=== PATIENT | female | born 1960 | race African-American/Black ===

== ENCOUNTER 2018-08-28 02:18 | Inpatient (IN) | payer MEDICARE, MEDICAID ==
[~2018-08-28] VITALS: Ht 167.6 cm; Wt 107.5 kg
[2018-08-28] VITALS (33 sets, daily range): BP systolic 53–161; BP diastolic 23–101
[~2018-08-28 02:18] MED LIST: AMLODIPINE PO; BENAZEPRIL PO; IRON PILLS PO; METF500T3; SIMV5TAB2
[2018-08-28] MEDS ORDERED: METHYLPREDNISOLONE SOD SUCC 125 MG/2 ML VIAL IV ONE (02:30)
[2018-08-28] MEDS ORDERED: SODIUM CHLORIDE 0.9% 1,000 ML IV ONE (02:30)
[2018-08-28] MEDS ORDERED: FAMOTIDINE 20MG/2ML VIAL IV ONE (02:30)
[2018-08-28] MEDS ORDERED: EPINEPHRINE 1:1000 1 MG/ML AMP INJ ONE (02:30)
[2018-08-28] MEDS ORDERED: DIPHENHYDRAMINE 50MG/ML VIAL IV ONE (02:30)
[2018-08-28] MEDS ORDERED: ONDANSETRON HCL 4MG/2ML INJ IV NR (03:00)
[2018-08-28] MEDS ORDERED: GLUCAGON,HUMAN RECOMBINANT 1MG/VIAL IV ONE (03:45)
[2018-08-28 04:03] LABS: HEMATOCRIT 32.2 % (36.0-48.0); HEMOGLOBIN 10.7 g/dL (12.0-16.0); MEAN CORPUSCULAR HEMOGLOBIN 28.4 pg (28.0-32.0); MEAN CORPUSCULAR VOLUME 85.5 fL (81.0-99.0); PLATELET 149 x1000/uL (130-400); RED BLOOD CELL COUNT 3.77 mill/uL (4.2-5.4); RED CELL DISTRIBUTION WIDTH 12.8 % (11.6-14.6)
[2018-08-28 04:11] LABS: CHLORIDE 112 mEq/L (98-107)
[2018-08-28] MEDS ORDERED: ENOXAPARIN 40MG/0.4ML SYR SUBCUT SCH (08:00)
[2018-08-28] MEDS ORDERED: ACETAMINOPHEN 325MG TABLET PO PRN (08:00)
[2018-08-28] MEDS ORDERED: DOCUSATE SODIUM 100MG CAPSULE PO PRN (08:00)
[2018-08-28] MEDS ORDERED: GUAIFENESIN 200MG/10ML SUGAR FREE UDC PO PRN (08:00)
[2018-08-28] MEDS ORDERED: TRAMADOL 50MG TABLET PO PRN (08:00)
[2018-08-28] MEDS ORDERED: CLONIDINE 0.1MG TABLET PO PRN (08:00)
[2018-08-28] MEDS ORDERED: IPRATROPIUM/ALBUTEROL 0.5-3(2.5)MG/3ML NEB INH PRN (08:00)
[2018-08-28] MEDS ORDERED: DIPHENHYDRAMINE 50MG/ML VIAL IV PRN (08:00)
[2018-08-28] MEDS ORDERED: ONDANSETRON HCL 4MG/2ML INJ IV PRN (08:00)
[2018-08-28] MEDS ORDERED: MAGNESIUM/ALUMINUM HYDROXIDE/SIMETHICONE 30ML UDC PO PRN (08:00)
[2018-08-28] MEDS ORDERED: NITROGLYCERIN 0.4MG TABLET SL SL PRN (08:00)
[2018-08-28] MEDS ORDERED: DEXTROSE 50% WATER 50ML SYRINGE IV PRN (08:15)
[2018-08-28 10:10] LABS: *AMPHETAMINES SCREEN URINE NEGATIVE (NEGATIVE); *BARBITURATES SCREEN URINE NEGATIVE (NEGATIVE); *BENZODIAZEPINES SCREEN URINE NEGATIVE (NEGATIVE); *COCAINE SCREEN URINE NEGATIVE (NEGATIVE)
[2018-08-28 10:11] LABS: CANNABINOID URINE SCREEN NEGATIVE (NEGATIVE); METHADONE URINE SCREEN NEGATIVE (NEGATIVE); OPIATES URINE SCREEN NEGATIVE (NEGATIVE); PHENCYCLIDINE URINE SCREEN NEGATIVE (NEGATIVE)
[2018-08-28] MEDS: FAMOTIDINE 20MG TABLET PO SCH ×2 (10:26→21:34)
[2018-08-28] MEDS: GUAIFENESIN 600MG ER TABLET PO SCH ×2 (10:26→21:37)
[2018-08-28] MEDS: ENOXAPARIN 30MG/0.3ML SYR SUBCUT SCH ×2 (10:27→21:38)
[2018-08-28] MEDS: METOPROLOL TARTRATE 25MG TABLET PO SCH ×3 (10:27→21:46)
[2018-08-28] MEDS: DIPHENHYDRAMINE 50MG/ML VIAL IV SCH ×2 (11:40→21:38)
[2018-08-28] MEDS: BLOOD SUGAR DIAGNOSTIC STRIP TEST SCH ×3 (11:50→21:38)
[2018-08-28] MEDS: METHYLPREDNISOLONE SOD SUCC 125 MG/2 ML VIAL IV SCH ×2 (13:02→21:39)
[2018-08-28] MEDS: INSULIN LISPRO 100 UNITS/ML SUBCUT SCH ×3 (13:03→21:42)
[2018-08-28 16:43] LABS: CREATINE KINASE MB FRACTION 1.2 ng/mL (0.5-3.6)
[2018-08-28] MEDS ORDERED: ZOLPIDEM TARTRATE 5MG TABLET PO PRN (21:00)
[2018-08-29] VITALS (23 sets, daily range): BP systolic 116–183; BP diastolic 56–122
[2018-08-29] MEDS: METHYLPREDNISOLONE SOD SUCC 125 MG/2 ML VIAL IV SCH ×3 (05:25→21:14)
[2018-08-29] MEDS: DIPHENHYDRAMINE 50MG/ML VIAL IV SCH (05:25)
[2018-08-29] MEDS: BLOOD SUGAR DIAGNOSTIC STRIP TEST SCH ×5 (06:13→21:15)
[2018-08-29] MEDS: INSULIN LISPRO 100 UNITS/ML SUBCUT SCH ×4 (06:13→21:49)
[2018-08-29] MEDS: GUAIFENESIN 600MG ER TABLET PO SCH ×2 (08:27→21:14)
[2018-08-29] MEDS: METOPROLOL TARTRATE 25MG TABLET PO SCH (08:27)
[2018-08-29] MEDS: FAMOTIDINE 20MG TABLET PO SCH ×2 (08:27→21:14)
[2018-08-29] MEDS: ENOXAPARIN 30MG/0.3ML SYR SUBCUT SCH ×2 (08:28→21:14)
[2018-08-29] MEDS ORDERED: HALOPERIDOL LACTATE 5MG/ML VIAL IM PRN (12:30)
[2018-08-29] MEDS ORDERED: DIPHENHYDRAMINE 25MG CAPSULE PO PRN (18:45)
[2018-08-29] MEDS: AMLODIPINE 2.5MG TABLET PO SCH (21:15)
[2018-08-30] VITALS: BP 156/86
[2018-08-30 04:00] VITALS: BP 145/80
[2018-08-30] MEDS: BLOOD SUGAR DIAGNOSTIC STRIP TEST SCH ×2 (06:10→12:28)
[2018-08-30] MEDS: METHYLPREDNISOLONE SOD SUCC 125 MG/2 ML VIAL IV SCH ×2 (06:10→13:46)
[2018-08-30] MEDS: INSULIN LISPRO 100 UNITS/ML SUBCUT SCH ×2 (07:11→13:14)
[2018-08-30 08:00] VITALS: BP 145/88
[2018-08-30] MEDS: GUAIFENESIN 600MG ER TABLET PO SCH (09:27)
[2018-08-30] MEDS: FAMOTIDINE 20MG TABLET PO SCH (09:27)
[2018-08-30] MEDS: AMLODIPINE 2.5MG TABLET PO SCH (09:27)
[2018-08-30] MEDS: ENOXAPARIN 30MG/0.3ML SYR SUBCUT SCH (09:28)
[2018-08-30 12:00] VITALS: BP 146/78
[2018-08-30 12:48] VITALS: BP 146/78
[2018-08-31 10:06] LABS: C1 ESTERASE INHIBITOR 34 mg/dL (21-39)
[2018-09-01 13:06] LABS: C1 ESTERASE INHIBITOR FUNCTNL 100 (.)
== END 2018-08-30 15:05 | disposition home or self-care (01) | DRG 916 ==
LOC: ER 02:18 → MICUSO 03:42 → ENRESERV 07:11 → 5WST 08-29 14:00
PROVIDERS: ADMIT Internal Medicine; ATTEND Internal Medicine
PROC: 30233K1 Transfusion of Nonautologous Frozen Plasma into Peripheral Vein, Percutaneous Approach (ICD-10-PCS; principal; 2018-08-28)
DX: T78.3XXA Angioneurotic edema, initial encounter (principal); I10 Essential (primary) hypertension; E78.00 Pure hypercholesterolemia, unspecified; E11.9 Type 2 diabetes mellitus without complications; D63.8 Anemia in other chronic diseases classified elsewhere; Z79.899 Other long term (current) drug therapy; Z79.84 Long term (current) use of oral hypoglycemic drugs
CPT/HCPCS: 36415; 80061; 80305; 82550; 82553; 82962; 83036; 84484; 85027; 86161; 86850; 86900; 86927; 93970; 96374; 96375; 99285; J1200; J1610; J1650; J1815; J2405; J2930; J3490; J7030; J7042; P9017; Q0163

== ENCOUNTER 2019-04-13 12:23 | Emergency (ER) | payer MEDICARE, MEDICAID ==
[~2019-04-13] VITALS: Ht 172.7 cm; Wt 106.0 kg
[~2019-04-13 12:23] MED LIST changes: -BENAZEPRIL PO
[2019-04-13] MEDS ORDERED: KETOROLAC 60MG/2ML VIAL IM STA (15:44)
[2019-04-13 16:11] LABS: BASOPHILS % 0.6 % (0.0-2.0); EOSINOPHILS % 2.7 % (0.0-5.0); HEMATOCRIT. 34.8 % (36.0-48.0); HEMOGLOBIN. 11.5 g/dL (12.0-16.0); MEAN CORPUSCULAR HEMOGLOBIN 27.8 pg (28.0-32.0); MEAN CORPUSCULAR VOLUME 84.4 fL (81.0-99.0); MEAN PLATELET VOLUME 8.9 fl (7.4-10.4); MONOCYTES % 8.6 % (2.0-8.0); NEUTROPHILS % 56.1 % (40.0-76.0); PLATELET 177 x1000/uL (130-400); RED BLOOD CELL COUNT 4.12 mill/uL (4.2-5.4); RED CELL DISTRIBUTION WIDTH 14.2 % (11.6-14.6)
[2019-04-13 16:17] LABS: PROTHROMBIN TIME 10.5 sec (9.6-11.0)
[2019-04-13 18:00] VITALS: BP 146/82
[2019-04-13 21:32] LABS: CHLORIDE 113 mEq/L (98-107)
== END 2019-04-13 18:53 | disposition home or self-care (01) ==
LOC: ER 12:23
DX: S70.01XA Contusion of right hip, initial encounter (principal); S40.021A Contusion of right upper arm, initial encounter; E11.9 Type 2 diabetes mellitus without complications; I10 Essential (primary) hypertension; W18.39XA Other fall on same level, initial encounter; Y93.89 Activity, other specified; Y92.9 Unspecified place or not applicable; Z88.8 Allergy status to other drugs, medicaments and biological substances; Z86.73 Personal history of transient ischemic attack (TIA), and cerebral infarction without residual deficits
CPT/HCPCS: 36415; 70450; 73030; 73060; 73502; 80053; 85025; 85610; 96372; 99284; J1885

== ENCOUNTER 2019-12-07 06:56 | Inpatient (IN) | payer MEDICARE, MEDICAID ==
[~2019-12-07] VITALS: Ht 165.1 cm; Wt 99.8 kg
[2019-12-07 08:50] LABS: BASOPHILS % 0.3 % (0.0-2.0); EOSINOPHILS % 0.8 % (0.0-5.0); HEMOGLOBIN. 11.5 g/dL (12.0-16.0); MEAN CORPUSCULAR HEMOGLOBIN 28.2 pg (28.0-32.0); MEAN CORPUSCULAR VOLUME 83.5 fL (81.0-99.0); MEAN PLATELET VOLUME 9.9 fl (7.4-10.4); MONOCYTES % 8.2 % (2.0-8.0); NEUTROPHILS % 80.7 % (40.0-76.0); PLATELET 145 x1000/uL (130-400); RED BLOOD CELL COUNT 4.07 mill/uL (4.2-5.4); RED CELL DISTRIBUTION WIDTH 13.7 % (11.6-14.6)
[2019-12-07 08:51] LABS: CHLORIDE 107 mEq/L (98-107)
[2019-12-07] MEDS ORDERED: CLONIDINE 0.1MG TABLET PO PRN (11:30)
[2019-12-07] MEDS ORDERED: ENOXAPARIN 40MG/0.4ML SYR SUBCUT SCH (11:30)
[2019-12-07] MEDS ORDERED: ACETAMINOPHEN 325MG TABLET PO PRN (11:30)
[2019-12-07] MEDS ORDERED: IPRATROPIUM/ALBUTEROL 0.5-3(2.5)MG/3ML NEB NEB PRN (11:30)
[2019-12-07] MEDS ORDERED: ONDANSETRON HCL 4MG/2ML INJ IV PRN (11:30)
[2019-12-07] MEDS ORDERED: DEXTROSE 50% WATER 50ML SYRINGE IV PRN ×2 (11:30)
[2019-12-07] MEDS ORDERED: MAGNESIUM/ALUMINUM HYDROXIDE/SIMETHICONE 30ML UDC PO PRN (11:30)
[2019-12-07] MEDS ORDERED: DOCUSATE SODIUM 100MG CAPSULE PO PRN (11:30)
[2019-12-07] MEDS ORDERED: HYDROCODONE/ACETAMINOPHEN 5/325MG TABLET PO PRN (11:30)
[2019-12-07] MEDS: ENOXAPARIN 30MG/0.3ML SYR SUBCUT SCH (11:53)
[2019-12-07] MEDS: BLOOD SUGAR DIAGNOSTIC STRIP TEST SCH ×3 (11:54→21:00)
[2019-12-07] MEDS: INSULIN LISPRO 100 UNITS/ML SUBCUT SCH ×3 (11:54→20:40)
[2019-12-07 15:11] LABS: ETHANOL BLOOD < 10 mg/dL
[2019-12-07 15:16] LABS: CREATINE KINASE 269 IU/L (26-192)
[2019-12-07 22:10] VITALS: BP 158/91
[2019-12-08] VITALS (7 sets, daily range): BP systolic 102–163; BP diastolic 69–91
[2019-12-08] MEDS: ENOXAPARIN 30MG/0.3ML SYR SUBCUT SCH ×3 (00:20→22:00)
[2019-12-08] MEDS: BLOOD SUGAR DIAGNOSTIC STRIP TEST SCH ×3 (06:34→21:00)
[2019-12-08] MEDS: INSULIN LISPRO 100 UNITS/ML SUBCUT SCH ×4 (06:35→22:03)
[2019-12-08 06:52] LABS: CHLORIDE 106 mEq/L (98-107)
[2019-12-08 07:05] LABS: LDL CHOLESTEROL 90 mg/dL (5-100)
[2019-12-08 07:06] LABS: HDL CHOLESTEROL 44 mg/dL (40-59); PHOSPHORUS 3.1 mg/dL (2.5-4.9)
[2019-12-08 07:23] LABS: BASOPHILS % 0.6 % (0.0-2.0); EOSINOPHILS % 1.9 % (0.0-5.0); HEMATOCRIT. 33.8 % (36.0-48.0); HEMOGLOBIN. 11.3 g/dL (12.0-16.0); LYMPHOCYTES % 20.9 % (20.0-50.0); MEAN CORPUSCULAR HEMOGLOBIN 27.9 pg (28.0-32.0); MEAN CORPUSCULAR VOLUME 83.3 fL (81.0-99.0); MEAN PLATELET VOLUME 10.3 fl (7.4-10.4); MONOCYTES % 10.2 % (2.0-8.0); NEUTROPHILS % 66.4 % (40.0-76.0); PLATELET 151 x1000/uL (130-400); RED BLOOD CELL COUNT 4.05 mill/uL (4.2-5.4); RED CELL DISTRIBUTION WIDTH 14.4 % (11.6-14.6)
[2019-12-08] MEDS: PANTOPRAZOLE SODIUM 40 MG/VIAL IV SCH (08:54)
[2019-12-08] MEDS ORDERED: INSULIN GLARGINE UD 100 UNITS/ML SYR SUBCUT SCH (22:00)
[2019-12-08] MEDS: INSULIN GLARGINE UD 100 UNITS/ML SYR SUBCUT SCH (22:03)
[2019-12-09] VITALS: BP 141/82
[2019-12-09 04:00] VITALS: BP 153/75
[2019-12-09] MEDS: BLOOD SUGAR DIAGNOSTIC STRIP TEST SCH ×2 (05:20→11:43)
[2019-12-09] MEDS: INSULIN LISPRO 100 UNITS/ML SUBCUT SCH ×2 (05:56→11:59)
[2019-12-09 06:39] LABS: CHLORIDE 107 mEq/L (98-107)
[2019-12-09 07:04] LABS: BASOPHILS % 0.6 % (0.0-2.0); EOSINOPHILS % 2.9 % (0.0-5.0); HEMATOCRIT. 34.3 % (36.0-48.0); HEMOGLOBIN. 11.1 g/dL (12.0-16.0); LYMPHOCYTES % 30.7 % (20.0-50.0); MEAN CORPUSCULAR HEMOGLOBIN 27.5 pg (28.0-32.0); MEAN CORPUSCULAR VOLUME 84.5 fL (81.0-99.0); MEAN PLATELET VOLUME 9.9 fl (7.4-10.4); MONOCYTES % 10.9 % (2.0-8.0); NEUTROPHILS % 54.9 % (40.0-76.0); PLATELET 132 x1000/uL (130-400); RED BLOOD CELL COUNT 4.06 mill/uL (4.2-5.4); RED CELL DISTRIBUTION WIDTH 14.1 % (11.6-14.6)
[2019-12-09 08:00] VITALS: BP_SYST 139; BP_SYST 144; BP_SYST 147; BP_DIAS 78; BP_DIAS 79; BP_DIAS 92
[2019-12-09] MEDS: ENOXAPARIN 30MG/0.3ML SYR SUBCUT SCH (09:00)
[2019-12-09] MEDS: PANTOPRAZOLE SODIUM 40 MG/VIAL IV SCH (09:00)
[2019-12-09] MEDS: INSULIN GLARGINE UD 100 UNITS/ML SYR SUBCUT SCH (10:15)
[2019-12-09] MEDS ORDERED: GADOBENATE DIMEGLUMINE 529 MG/ML 10ML IV ONE (10:59)
[2019-12-09 12:00] VITALS: BP 108/68
[2019-12-09 12:25] LABS: T4 FREE 1.5 ng/dL (0.76-1.46)
[2019-12-09 13:20] VITALS: BP 108/68
[2019-12-09] MEDS ORDERED: INSULIN GLARGINE UD 100 UNITS/ML SYR SUBCUT SCH (22:00)
[2019-12-10] MEDS ORDERED: GLIPIZIDE 5MG TABLET PO SCH (06:45)
== END 2019-12-09 14:20 | disposition home or self-care (01) | DRG 74 ==
LOC: ER 06:56 → 5WST 10:30 → ENRESERV 20:23
PROVIDERS: ADMIT Internal Medicine; ATTEND Internal Medicine
DX: G90.8 Other disorders of autonomic nervous system (principal); I10 Essential (primary) hypertension; E11.65 Type 2 diabetes mellitus with hyperglycemia; E66.01 Morbid (severe) obesity due to excess calories; E78.00 Pure hypercholesterolemia, unspecified; G93.9 Disorder of brain, unspecified; E78.5 Hyperlipidemia, unspecified; E89.0 Postprocedural hypothyroidism; F41.9 Anxiety disorder, unspecified; Z86.011 Personal history of benign neoplasm of the brain; Z88.8 Allergy status to other drugs, medicaments and biological substances; Z86.73 Personal history of transient ischemic attack (TIA), and cerebral infarction without residual deficits; Z79.899 Other long term (current) drug therapy; Z68.36 Body mass index [BMI] 36.0-36.9, adult; Z71.3 Dietary counseling and surveillance
CPT/HCPCS: 36415; 70544; 70552; 70553; 71045; 80048; 80053; 80061; 80320; 82550; 82962; 83036; 83735; 83880; 84100; 84439; 84443; 84481; 84484; 85025; 93005; 93306; 93880; 93970; 97162; 99285; A9577; C9113; J1650; J1815; G0480

== ENCOUNTER 2019-12-29 10:32 | Inpatient (IN) | payer MEDICARE, MEDICAID ==
[~2019-12-29] VITALS: Ht 167.6 cm; Wt 113.4 kg
[2019-12-29] MEDS ORDERED: ACETAMINOPHEN 325MG TABLET PO STA (10:58)
[2019-12-29] MEDS ORDERED: VANCOMYCIN 500 MG PREMIX 100 ML IV SCH (11:00)
[2019-12-29] MEDS ORDERED: VANCOMYCIN 1 G PREMIX 200 ML IV SCH (11:00)
[2019-12-29 13:00] LABS: BASOPHILS % 0.6 % (0.0-2.0); EOSINOPHILS % 2.3 % (0.0-5.0); HEMATOCRIT. 31.2 % (36.0-48.0); HEMOGLOBIN. 10.1 g/dL (12.0-16.0); LYMPHOCYTES % 19.9 % (20.0-50.0); MEAN CORPUSCULAR HEMOGLOBIN 27.3 pg (28.0-32.0); MEAN CORPUSCULAR VOLUME 84.5 fL (81.0-99.0); MEAN PLATELET VOLUME 9.5 fl (7.4-10.4); MONOCYTES % 8.3 % (2.0-8.0); NEUTROPHILS % 68.9 % (40.0-76.0); PLATELET 221 x1000/uL (130-400); RED CELL DISTRIBUTION WIDTH 13.9 % (11.6-14.6)
[2019-12-29 13:02] LABS: CHLORIDE 108 mEq/L (98-107)
[2019-12-29 13:09] LABS: INR 1.1; PROTHROMBIN TIME 11.1 sec (9.6-11.0)
[2019-12-29 13:14] LABS: CLARITY URINE CLOUDY (CLEAR); COLOR URINE YELLOW (YELLOW); KETONES URINE NEGATIVE (NEGATIVE); LEUKOCYTE ESTERASE URINE 2+ (NEGATIVE); NITRITE URINE NEGATIVE (NEGATIVE); OCCULT BLOOD URINE NEGATIVE (NEGATIVE); PROTEIN URINE TRACE (NEGATIVE); SPECIFIC GRAVITY URINE 1.017 (1.005-1.030); UROBILINOGEN URINE 0.2 E.U./dL (0.2-1.0)
[2019-12-29] MEDS ORDERED: SODIUM CHLORIDE 0.9% 1000ML BAG (SEPSIS BOLUS) IV ONE (13:45)
[2019-12-29] MEDS ORDERED: CEFTRIAXONE 1 G PREMIX 50 ML IV ONE (13:45)
[2019-12-29] MEDS ORDERED: ACETAMINOPHEN WITH CODEINE 300/30MG TABLET PO PRN (15:45)
[2019-12-29] MEDS ORDERED: ACETAMINOPHEN 325MG TABLET PO PRN (15:45)
[2019-12-29] MEDS ORDERED: CEFTRIAXONE 1 G PREMIX 50 ML IV SCH (15:45)
[2019-12-29] MEDS ORDERED: ONDANSETRON HCL 4MG/2ML INJ IV PRN (15:45)
[2019-12-29] MEDS ORDERED: DEXTROSE 50% WATER 50ML SYRINGE IV PRN (15:45)
[2019-12-29] MEDS ORDERED: KETOROLAC 15MG/ML VIAL IV PRN (15:45)
[2019-12-29] MEDS ORDERED: CEFTRIAXONE 1,000 MG in DEXTROSE 5% WATER 50 ML IV SCH ×2 (16:00→23:00)
[2019-12-29] MEDS: BLOOD SUGAR DIAGNOSTIC STRIP TEST SCH ×2 (17:40→21:52)
[2019-12-29] MEDS: INSULIN LISPRO 100 UNITS/ML SUBCUT SCH ×2 (18:54→21:00)
[2019-12-29] MEDS: VANCOMYCIN 1 G PREMIX 200 ML IV SCH (21:00)
[2019-12-29 23:08] VITALS: BP 158/83
[2019-12-30 04:00] VITALS: BP 146/88
[2019-12-30 05:06] LABS: BASOPHILS % 0.5 % (0.0-2.0); EOSINOPHILS % 2.5 % (0.0-5.0); HEMOGLOBIN. 10.3 g/dL (12.0-16.0); LYMPHOCYTES % 20.2 % (20.0-50.0); MEAN CORPUSCULAR HEMOGLOBIN 27.5 pg (28.0-32.0); MEAN CORPUSCULAR VOLUME 83.1 fL (81.0-99.0); NEUTROPHILS % 67.8 % (40.0-76.0); PLATELET 220 x1000/uL (130-400); RED BLOOD CELL COUNT 3.74 mill/uL (4.2-5.4); RED CELL DISTRIBUTION WIDTH 13.8 % (11.6-14.6)
[2019-12-30] MEDS: BLOOD SUGAR DIAGNOSTIC STRIP TEST SCH ×4 (05:30→21:31)
[2019-12-30 05:39] LABS: CHLORIDE 109 mEq/L (98-107)
[2019-12-30] MEDS: INSULIN LISPRO 100 UNITS/ML SUBCUT SCH ×4 (08:51→21:35)
[2019-12-30 09:05] VITALS: BP 174/69
[2019-12-30 09:06] VITALS: BP_SYST 133; BP_SYST 134; BP_DIAS 72; BP_DIAS 76
[2019-12-30] MEDS: VANCOMYCIN 1 G PREMIX 200 ML IV SCH ×2 (10:51→20:43)
[2019-12-30 12:26] VITALS: BP 118/72
[2019-12-30] MEDS: AMLODIPINE 10MG TABLET PO SCH (13:17)
[2019-12-30 16:33] VITALS: BP 134/74
[2019-12-30 20:58] VITALS: BP 129/70
[2019-12-31] VITALS: BP 141/78
[2019-12-31] MEDS: CEPHALEXIN 250MG CAPSULE PO SCH ×3 (00:35→13:53)
[2019-12-31 04:00] VITALS: BP 135/68
[2019-12-31] MEDS: BLOOD SUGAR DIAGNOSTIC STRIP TEST SCH ×2 (06:23→12:25)
[2019-12-31 08:00] VITALS: BP 138/71
[2019-12-31] MEDS: INSULIN LISPRO 100 UNITS/ML SUBCUT SCH ×2 (08:45→12:59)
[2019-12-31] MEDS: AMLODIPINE 10MG TABLET PO SCH (09:19)
[2019-12-31 09:28] LABS: CHLORIDE 108 mEq/L (98-107)
[2019-12-31] MEDS ORDERED: CEPH-569 MT (11:21)
[2019-12-31 12:00] VITALS: BP 156/94
[2019-12-31 12:12] LABS: BASOPHILS % 0.9 % (0.0-2.0); EOSINOPHILS % 2.9 % (0.0-5.0); HEMATOCRIT. 33.2 % (36.0-48.0); HEMOGLOBIN. 10.8 g/dL (12.0-16.0); LYMPHOCYTES % 20.1 % (20.0-50.0); MEAN CORPUSCULAR HEMOGLOBIN 27.3 pg (28.0-32.0); MONOCYTES % 8.1 % (2.0-8.0); RED BLOOD CELL COUNT 3.95 mill/uL (4.2-5.4); RED CELL DISTRIBUTION WIDTH 13.7 % (11.6-14.6)
[2019-12-31 12:33] LABS: PLATELET 142 x1000/uL (130-400)
[2019-12-31 15:25] VITALS: BP 136/72
[2019-12-31 16:00] VITALS: BP 136/72
== END 2019-12-31 17:25 | disposition home health service (06) | DRG 872 ==
LOC: ER 10:32 → 6WST 14:54 → EDBEDREQ 14:55 → EDBEDREQSVC 14:55 → ENRESERV 21:25
PROVIDERS: ADMIT Internal Medicine; ATTEND Internal Medicine
DX: A41.9 Sepsis, unspecified organism (principal); L03.115 Cellulitis of right lower limb; N39.0 Urinary tract infection, site not specified; E87.2 Acidosis; Z68.41 Body mass index [BMI] 40.0-44.9, adult; L03.116 Cellulitis of left lower limb; D64.9 Anemia, unspecified; D32.9 Benign neoplasm of meninges, unspecified; E87.8 Other disorders of electrolyte and fluid balance, not elsewhere classified; S80.822A Blister (nonthermal), left lower leg, initial encounter; S80.821A Blister (nonthermal), right lower leg, initial encounter; X58.XXXA Exposure to other specified factors, initial encounter; I10 Essential (primary) hypertension; E78.00 Pure hypercholesterolemia, unspecified; E11.9 Type 2 diabetes mellitus without complications; E78.5 Hyperlipidemia, unspecified; I87.2 Venous insufficiency (chronic) (peripheral); I87.8 Other specified disorders of veins; Z86.73 Personal history of transient ischemic attack (TIA), and cerebral infarction without residual deficits; Z88.8 Allergy status to other drugs, medicaments and biological substances; Z79.84 Long term (current) use of oral hypoglycemic drugs; Z79.899 Other long term (current) drug therapy; Y93.89 Activity, other specified; Y92.89 Other specified places as the place of occurrence of the external cause; Y99.8 Other external cause status
CPT/HCPCS: 36415; 71045; 80048; 80053; 80202; 81003; 82962; 83605; 85025; 93005; 93970; 97162; 99291; J0696; J1815; J2405; J3370; J7030; J7060

== ENCOUNTER 2020-12-20 18:06 | Inpatient (IN) | payer MEDICARE, MEDICAID ==
[~2020-12-20] VITALS: Ht 172.7 cm; Wt 99.9 kg
[~2020-12-20 18:06] MED LIST changes: +CEPH-569 MT; +GLIM2TAB30 MT; -METF500T3; +METF500T3 PO
[2020-12-20 20:34] LABS: CHLORIDE 107 mEq/L (98-107)
[2020-12-20 20:37] LABS: BASOPHILS % 0.4 % (0.0-2.0); HEMOGLOBIN. 12.4 g/dL (12.0-16.0); LYMPHOCYTES % 18.1 % (20.0-50.0); MEAN CORPUSCULAR HEMOGLOBIN 26.8 pg (28.0-32.0); MEAN CORPUSCULAR VOLUME 82.3 fL (81.0-99.0); MEAN PLATELET VOLUME 9.8 fl (7.4-10.4); MONOCYTES % 10.4 % (2.0-8.0); NEUTROPHILS % 70.1 % (40.0-76.0); PLATELET 165 x1000/uL (130-400); RED BLOOD CELL COUNT 4.62 mill/uL (4.2-5.4); RED CELL DISTRIBUTION WIDTH 14.1 % (11.6-14.6)
[2020-12-21] VITALS (10 sets, daily range): BP systolic 140–160; BP diastolic 70–104
[2020-12-21] MEDS ORDERED: DEXTROSE 50% WATER 50ML SYRINGE IV PRN (12:00)
[2020-12-21] MEDS ORDERED: ACETAMINOPHEN 325MG TABLET PO PRN (12:00)
[2020-12-21] MEDS ORDERED: ONDANSETRON HCL 4MG/2ML INJ IV PRN (12:00)
[2020-12-21] MEDS: BLOOD SUGAR DIAGNOSTIC STRIP TEST SCH ×3 (12:52→21:04)
[2020-12-21] MEDS: INSULIN LISPRO 100 UNITS/ML SUBCUT SCH ×3 (13:09→21:04)
[2020-12-22] VITALS (8 sets, daily range): BP systolic 133–172; BP diastolic 60–97
[2020-12-22] MEDS: CLONIDINE 0.1MG TABLET PO PRN (02:24)
[2020-12-22] MEDS: BLOOD SUGAR DIAGNOSTIC STRIP TEST SCH ×4 (07:34→21:00)
[2020-12-22] MEDS: INSULIN LISPRO 100 UNITS/ML SUBCUT SCH ×4 (08:26→22:22)
[2020-12-23] VITALS (7 sets, daily range): BP systolic 133–159; BP diastolic 68–98
[2020-12-23] MEDS: INSULIN LISPRO 100 UNITS/ML SUBCUT SCH ×4 (08:54→22:05)
[2020-12-23] MEDS: BLOOD SUGAR DIAGNOSTIC STRIP TEST SCH ×3 (12:30→20:28)
[2020-12-23] MEDS: INSULIN GLARGINE UD 100 UNITS/ML SYR SUBCUT SCH (22:08)
[2020-12-24] VITALS: BP 159/84
[2020-12-24] MEDS: CLONIDINE 0.1MG TABLET PO PRN (00:10)
[2020-12-24 04:00] VITALS: BP 104/58
[2020-12-24] MEDS: BLOOD SUGAR DIAGNOSTIC STRIP TEST SCH ×4 (07:30→21:47)
[2020-12-24 08:00] VITALS: BP 128/58
[2020-12-24] MEDS: INSULIN LISPRO 100 UNITS/ML SUBCUT SCH ×4 (09:10→21:52)
[2020-12-24] MEDS: INSULIN GLARGINE UD 100 UNITS/ML SYR SUBCUT SCH ×2 (10:23→21:54)
[2020-12-24 12:00] VITALS: BP 139/68
[2020-12-24 16:00] VITALS: BP 141/86
[2020-12-24 20:00] VITALS: BP 159/99
[2020-12-25 00:07] VITALS: BP 126/73
[2020-12-25 01:09] VITALS: BP 126/73
[2020-12-25] MEDS: BLOOD SUGAR DIAGNOSTIC STRIP TEST SCH ×4 (07:44→21:00)
[2020-12-25 08:00] VITALS: BP 131/63
[2020-12-25] MEDS: INSULIN GLARGINE UD 100 UNITS/ML SYR SUBCUT SCH ×2 (09:25→21:43)
[2020-12-25] MEDS: INSULIN LISPRO 100 UNITS/ML SUBCUT SCH ×4 (09:25→21:41)
[2020-12-25 12:00] VITALS: BP 124/78
[2020-12-25 16:00] VITALS: BP 121/80
[2020-12-26] VITALS (8 sets, daily range): BP systolic 110–137; BP diastolic 49–101
[2020-12-26] MEDS: BLOOD SUGAR DIAGNOSTIC STRIP TEST SCH (07:30)
[2020-12-26] MEDS: INSULIN LISPRO 100 UNITS/ML SUBCUT SCH (08:00)
[2020-12-26] MEDS: INSULIN GLARGINE UD 100 UNITS/ML SYR SUBCUT SCH (11:26)
== END 2020-12-26 19:48 | DRG 72 ==
LOC: ER 18:06 → 8WST 12-21 00:38 → EDBEDREQTM 12-21 00:43 → EDBEDREQ 12-21 00:43 → EDBEDREQSVC 12-21 00:43 → EDBEDREQDT 12-21 00:43 → ENRESERV 12-21 08:35 → 5EST 12-21 09:39
PROVIDERS: ADMIT Internal Medicine; ATTEND Internal Medicine
DX: G93.89 Other specified disorders of brain (principal); D49.6 Neoplasm of unspecified behavior of brain; R26.9 Unspecified abnormalities of gait and mobility; E66.9 Obesity, unspecified; E78.5 Hyperlipidemia, unspecified; Z20.822 Contact with and (suspected) exposure to COVID-19; I10 Essential (primary) hypertension; Z86.011 Personal history of benign neoplasm of the brain; Z92.3 Personal history of irradiation; Z68.33 Body mass index [BMI] 33.0-33.9, adult; Z79.899 Other long term (current) drug therapy; Z88.8 Allergy status to other drugs, medicaments and biological substances; W18.30XA Fall on same level, unspecified, initial encounter; E11.65 Type 2 diabetes mellitus with hyperglycemia
CPT/HCPCS: 36415; 71045; 80053; 82962; 83880; 84484; 85025; 87426; 93005; 97162; 97166; 97530; 97535; 99285; J1815

== ENCOUNTER 2021-12-06 23:41 | Inpatient (IN) | payer MEDICARE, MEDICAID ==
[~2021-12-06] VITALS: Ht 167.6 cm; Wt 100.5 kg
[~2021-12-06 23:41] MED LIST changes: -CEPH-569 MT; -GLIM2TAB30 MT; -IRON PILLS PO; -SIMV5TAB2
[2021-12-07] MEDS ORDERED: SODIUM CHLORIDE 0.9% 1,000 ML IV ONE (00:30)
[2021-12-07 00:49] LABS: BASOPHILS % 0.1 % (0.0-2.0); EOSINOPHILS % 0.3 % (0.0-5.0); HEMATOCRIT. 39.3 % (36.0-48.0); HEMOGLOBIN. 12.5 g/dL (12.0-16.0); LYMPHOCYTES % 17.2 % (20.0-50.0); MEAN CORPUSCULAR HEMOGLOBIN 27.5 pg (28.0-32.0); MEAN CORPUSCULAR VOLUME 86.5 fL (81.0-99.0); MEAN PLATELET VOLUME 10.5 fl (7.4-10.4); MONOCYTES % 9.3 % (2.0-8.0); NEUTROPHILS % 73.1 % (40.0-76.0); PLATELET 189 x1000/uL (130-400); RED BLOOD CELL COUNT 4.55 mill/uL (4.2-5.4); RED CELL DISTRIBUTION WIDTH 14.3 % (11.6-14.6)
[2021-12-07 00:53] LABS: CHLORIDE 101 mEq/L (98-107)
[2021-12-07 01:09] LABS: BETA HYDROXYBUTYRATE 0.2 mMol/L (0.0-0.3); ETHANOL BLOOD < 10 mg/dL
[2021-12-07 01:50] LABS: CLARITY URINE CLEAR (CLEAR); COLOR URINE YELLOW (YELLOW); KETONES URINE NEGATIVE (NEGATIVE); LEUKOCYTE ESTERASE URINE NEGATIVE (NEGATIVE); NITRITE URINE NEGATIVE (NEGATIVE); OCCULT BLOOD URINE NEGATIVE (NEGATIVE); PROTEIN URINE NEGATIVE (NEGATIVE); UROBILINOGEN URINE 0.2 E.U./dL (0.2-1.0)
[2021-12-07 02:21] LABS: *AMPHETAMINES SCREEN URINE NEGATIVE (NEGATIVE); *BARBITURATES SCREEN URINE NEGATIVE (NEGATIVE); *BENZODIAZEPINES SCREEN URINE NEGATIVE (NEGATIVE); *COCAINE SCREEN URINE NEGATIVE (NEGATIVE); CANNABINOID URINE SCREEN NEGATIVE (NEGATIVE); METHADONE URINE SCREEN NEGATIVE (NEGATIVE); OPIATES URINE SCREEN NEGATIVE (NEGATIVE); PHENCYCLIDINE URINE SCREEN NEGATIVE (NEGATIVE)
[2021-12-07] MEDS ORDERED: INSULIN LISPRO 100 UNITS/ML SUBCUT NR (03:00)
[2021-12-07] MEDS ORDERED: DEXAMETHASONE 10 MG/ML VIAL IV NR (06:30)
[2021-12-07] MEDS ORDERED: ONDANSETRON HCL 4MG/2ML INJ IV PRN ×2 (06:45→11:30)
[2021-12-07] MEDS ORDERED: MORPHINE SULFATE 2 MG/ML CPJ (NOT FOR IM USE) IV PRN (06:45)
[2021-12-07 10:05] VITALS: BP 125/62
[2021-12-07] MEDS ORDERED: DEXTROSE 50% WATER 50ML SYRINGE IV PRN ×3 (11:30→13:30)
[2021-12-07] MEDS ORDERED: ACETAMINOPHEN 325MG TABLET PO PRN (11:30)
[2021-12-07] MEDS ORDERED: DOCUSATE SODIUM 100MG CAPSULE PO PRN (11:30)
[2021-12-07] MEDS ORDERED: CIPROFLOXACIN (11:36)
[2021-12-07] MEDS ORDERED: AMLO10TA80 PO (11:36)
[2021-12-07] MEDS ORDERED: DEXAMETHASONE (11:36)
[2021-12-07] MEDS ORDERED: DEXA4TAB PO (11:36)
[2021-12-07] MEDS ORDERED: ATOR40TA70 PO (11:36)
[2021-12-07] MEDS ORDERED: LEVE500T19 PO (11:36)
[2021-12-07] MEDS ORDERED: OXYC1TAB12 PO (11:36)
[2021-12-07 12:00] VITALS: BP 112/62
[2021-12-07] MEDS ORDERED: CARISOPRODOL 350 MG TABLET PO PRN (12:00)
[2021-12-07] MEDS ORDERED: BLOOD SUGAR DIAGNOSTIC STRIP TEST SCH (12:20)
[2021-12-07] MEDS ORDERED: INSULIN LISPRO 100 UNITS/ML SUBCUT SCH (12:50)
[2021-12-07] MEDS ORDERED: GADOTERATE MEGLUMINE 5 MMOL/10 ML VIAL IV ONE (14:37)
[2021-12-07 16:00] VITALS: BP 122/69
[2021-12-07] MEDS: INSULIN LISPRO 100 UNITS/ML SUBCUT SCH ×2 (17:22→20:47)
[2021-12-07] MEDS: BLOOD SUGAR DIAGNOSTIC STRIP TEST SCH ×2 (17:22→20:41)
[2021-12-07 20:00] VITALS: BP 135/85
[2021-12-08] VITALS: BP 127/73
[2021-12-08 04:00] VITALS: BP 149/79
[2021-12-08] MEDS: BLOOD SUGAR DIAGNOSTIC STRIP TEST SCH ×4 (07:20→20:31)
[2021-12-08 08:00] VITALS: BP 156/68
[2021-12-08] MEDS ORDERED: HYDRALAZINE 20MG/ML VIAL IV PRN (08:45)
[2021-12-08] MEDS: FAMOTIDINE 20MG TABLET PO SCH (08:50)
[2021-12-08] MEDS: INSULIN LISPRO 100 UNITS/ML SUBCUT SCH ×4 (08:51→21:25)
[2021-12-08 10:41] LABS: BASOPHILS % 0.1 % (0.0-2.0); HEMATOCRIT. 37.2 % (36.0-48.0); HEMOGLOBIN. 12.2 g/dL (12.0-16.0); LYMPHOCYTES % 11.5 % (20.0-50.0); MEAN CORPUSCULAR HEMOGLOBIN 27.4 pg (28.0-32.0); MEAN CORPUSCULAR VOLUME 83.5 fL (81.0-99.0); MEAN PLATELET VOLUME 10.4 fl (7.4-10.4); MONOCYTES % 6.1 % (2.0-8.0); NEUTROPHILS % 82.3 % (40.0-76.0); PLATELET 176 x1000/uL (130-400); RED BLOOD CELL COUNT 4.45 mill/uL (4.2-5.4); RED CELL DISTRIBUTION WIDTH 13.9 % (11.6-14.6)
[2021-12-08 11:00] LABS: PHOSPHORUS 2.9 mg/dL (2.5-4.9)
[2021-12-08] MEDS ORDERED: INSULIN LISPRO 100 UNITS/ML SUBCUT NR (11:45)
[2021-12-08 12:00] VITALS: BP 145/88
[2021-12-08 16:00] VITALS: BP 144/61
[2021-12-08 20:00] VITALS: BP 142/80
[2021-12-08] MEDS: INSULIN GLARGINE 100 UNITS/ML SUBCUT SCH (21:25)
[2021-12-09] VITALS: BP 129/76
[2021-12-09 04:00] VITALS: BP 133/75
[2021-12-09] MEDS: BLOOD SUGAR DIAGNOSTIC STRIP TEST SCH ×4 (06:36→20:26)
[2021-12-09 08:00] VITALS: BP 139/75
[2021-12-09] MEDS: FAMOTIDINE 20MG TABLET PO SCH (09:05)
[2021-12-09] MEDS: INSULIN LISPRO 100 UNITS/ML SUBCUT SCH ×4 (09:06→21:22)
[2021-12-09] MEDS: INSULIN GLARGINE 100 UNITS/ML SUBCUT SCH ×2 (09:07→21:22)
[2021-12-09 12:00] VITALS: BP 138/79
[2021-12-09 16:00] VITALS: BP 154/88
[2021-12-09 16:41] LABS: BASOPHILS % 0.2 % (0.0-2.0); EOSINOPHILS % 0.6 % (0.0-5.0); HEMATOCRIT. 39.6 % (36.0-48.0); HEMOGLOBIN. 12.8 g/dL (12.0-16.0); LYMPHOCYTES % 21.9 % (20.0-50.0); MEAN CORPUSCULAR HEMOGLOBIN 27.8 pg (28.0-32.0); MEAN PLATELET VOLUME 9.9 fl (7.4-10.4); MONOCYTES % 8.6 % (2.0-8.0); NEUTROPHILS % 68.7 % (40.0-76.0); PLATELET 174 x1000/uL (130-400); RED BLOOD CELL COUNT 4.61 mill/uL (4.2-5.4); RED CELL DISTRIBUTION WIDTH 14.2 % (11.6-14.6)
[2021-12-09 20:00] VITALS: BP 146/85
[2021-12-10] VITALS: BP 142/86
[2021-12-10 04:00] VITALS: BP 133/81
[2021-12-10] MEDS: BLOOD SUGAR DIAGNOSTIC STRIP TEST SCH ×4 (06:23→20:31)
[2021-12-10] MEDS ORDERED: NALOXONE HCL 0.4MG/ML VIAL IV PRN (07:30)
[2021-12-10] MEDS: INSULIN LISPRO 100 UNITS/ML SUBCUT SCH ×4 (07:49→22:06)
[2021-12-10 08:00] VITALS: BP 143/75
[2021-12-10] MEDS: FAMOTIDINE 20MG TABLET PO SCH (08:43)
[2021-12-10] MEDS: HYDROCODONE/ACETAMINOPHEN 5/325MG TABLET PO PRN ×2 (08:43→21:15)
[2021-12-10] MEDS: INSULIN GLARGINE 100 UNITS/ML SUBCUT SCH ×2 (10:00→22:07)
[2021-12-10 12:00] VITALS: BP 123/78
[2021-12-10 16:00] VITALS: BP 150/83
[2021-12-10 20:00] VITALS: BP 153/84
[2021-12-11] VITALS: BP 147/82
[2021-12-11 04:00] VITALS: BP 140/84
[2021-12-11] MEDS: BLOOD SUGAR DIAGNOSTIC STRIP TEST SCH ×4 (07:20→20:22)
[2021-12-11 08:00] VITALS: BP 165/96
[2021-12-11] MEDS: INSULIN LISPRO 100 UNITS/ML SUBCUT SCH ×4 (08:48→21:02)
[2021-12-11] MEDS: FAMOTIDINE 20MG TABLET PO SCH (08:54)
[2021-12-11] MEDS: INSULIN GLARGINE 100 UNITS/ML SUBCUT SCH ×2 (10:00→21:02)
[2021-12-11 12:00] VITALS: BP 140/96
[2021-12-11 16:00] VITALS: BP 144/89
[2021-12-11 20:00] VITALS: BP 164/99
[2021-12-12] VITALS: BP 129/85
[2021-12-12 04:00] VITALS: BP 144/90
[2021-12-12] MEDS: BLOOD SUGAR DIAGNOSTIC STRIP TEST SCH ×2 (06:23→12:20)
[2021-12-12] MEDS: INSULIN LISPRO 100 UNITS/ML SUBCUT SCH ×2 (07:50→13:54)
[2021-12-12 08:00] VITALS: BP 128/77
[2021-12-12] MEDS: HYDROCODONE/ACETAMINOPHEN 5/325MG TABLET PO PRN (10:10)
[2021-12-12] MEDS: INSULIN GLARGINE 100 UNITS/ML SUBCUT SCH (10:20)
[2021-12-12] MEDS: FAMOTIDINE 20MG TABLET PO SCH (10:25)
[2021-12-12 12:00] VITALS: BP 124/68
[2021-12-12 14:40] VITALS: BP 128/81
[2021-12-12 16:00] VITALS: BP 129/74
[2021-12-12] MEDS ORDERED: INSULIN GLARGINE 100 UNITS/ML SUBCUT SCH (22:00)
== END 2021-12-12 17:40 | DRG 70 ==
LOC: ER 23:41 → 6WST 12-07 04:17 → ENRESERV 12-07 09:35
PROVIDERS: ADMIT Internal Medicine; ATTEND Internal Medicine
DX: G93.41 Metabolic encephalopathy (principal); N17.0 Acute kidney failure with tubular necrosis; E11.65 Type 2 diabetes mellitus with hyperglycemia; F03.90 Unspecified dementia, unspecified severity, without behavioral disturbance, psychotic disturbance, mood disturbance, and anxiety; I10 Essential (primary) hypertension; D72.829 Elevated white blood cell count, unspecified; E66.9 Obesity, unspecified; M47.812 Spondylosis without myelopathy or radiculopathy, cervical region; R62.7 Adult failure to thrive; R26.9 Unspecified abnormalities of gait and mobility; Z68.35 Body mass index [BMI] 35.0-35.9, adult; Z79.899 Other long term (current) drug therapy; Z88.8 Allergy status to other drugs, medicaments and biological substances; Z91.81 History of falling; G93.9 Disorder of brain, unspecified
CPT/HCPCS: 36415; 70553; 71045; 80048; 80053; 80305; 80320; 81003; 82010; 82140; 82962; 83036; 83605; 83735; 83880; 84100; 84145; 84443; 84484; 85025; 93005; 97116; 97161; 97165; 97166; 97530; 97535; 99291; A9577; J0360; J1100; J1815; J2270; J2405; J7030; G0480

== ENCOUNTER 2022-02-18 11:30 | Inpatient (IN) | payer MEDICARE, MEDICAID ==
[~2022-02-18] VITALS: Ht 165.1 cm; Wt 85.7 kg
[~2022-02-18 11:30] MED LIST changes: +AMLO10TA80 PO; +ATOR40TA70 PO; +CEFTRIAXONE 1,000 MG in DEXTROSE 5% WATER 50 ML IV SCH; +CIPROFLOXACIN; +DEXA4TAB PO; +DEXAMETHASONE; +LEVE500T19 PO; +OXYC1TAB12 PO
[2022-02-18 12:49] LABS: BASOPHILS % 0.2 % (0.0-2.0); EOSINOPHILS % 1.5 % (0.0-5.0); HEMATOCRIT. 43.8 % (36.0-48.0); HEMOGLOBIN. 13.9 g/dL (12.0-16.0); LYMPHOCYTES % 16.3 % (20.0-50.0); MEAN CORPUSCULAR HEMOGLOBIN 28.2 pg (28.0-32.0); MEAN CORPUSCULAR VOLUME 88.7 fL (81.0-99.0); MEAN PLATELET VOLUME 9.1 fl (7.4-10.4); MONOCYTES % 6.9 % (2.0-8.0); NEUTROPHILS % 75.1 % (40.0-76.0); PLATELET 207 x1000/uL (130-400); RED BLOOD CELL COUNT 4.94 mill/uL (4.2-5.4); RED CELL DISTRIBUTION WIDTH 15.1 % (11.6-14.6)
[2022-02-18 12:58] LABS: CHLORIDE 120 mEq/L (98-107)
[2022-02-18 13:11] LABS: ETHANOL BLOOD < 10 mg/dL
[2022-02-18 13:21] LABS: INR 1.1; PROTHROMBIN TIME 11.4 sec (9.6-11.0)
[2022-02-18 15:36] LABS: CLARITY URINE CLOUDY (CLEAR); COLOR URINE DARK YELLOW (YELLOW); KETONES URINE TRACE (NEGATIVE); LEUKOCYTE ESTERASE URINE 3+ (NEGATIVE); NITRITE URINE NEGATIVE (NEGATIVE); OCCULT BLOOD URINE TRACE (NEGATIVE); PROTEIN URINE 1+ (NEGATIVE); SPECIFIC GRAVITY URINE 1.022 (1.005-1.030)
[2022-02-18 16:04] LABS: *AMPHETAMINES SCREEN URINE NEGATIVE (NEGATIVE); *BARBITURATES SCREEN URINE NEGATIVE (NEGATIVE); *BENZODIAZEPINES SCREEN URINE PRESUMTIVE POSITIVE (NEGATIVE); *COCAINE SCREEN URINE NEGATIVE (NEGATIVE); CANNABINOID URINE SCREEN NEGATIVE (NEGATIVE); METHADONE URINE SCREEN NEGATIVE (NEGATIVE); OPIATES URINE SCREEN NEGATIVE (NEGATIVE); PHENCYCLIDINE URINE SCREEN NEGATIVE (NEGATIVE)
[2022-02-18] MEDS ORDERED: ONDANSETRON HCL 4MG/2ML INJ IV ONE (17:15)
[2022-02-18] MEDS ORDERED: DEXAMETHASONE 10 MG/ML VIAL IV ONE (17:15)
[2022-02-18 21:45] VITALS: BP 133/68
[2022-02-18] MEDS ORDERED: ATOR40TA70 PO (22:49)
[2022-02-18 23:00] VITALS: BP 133/68
[2022-02-18] MEDS ORDERED: DEXTROSE 50% WATER 50ML SYRINGE IV PRN (23:15)
[2022-02-18] MEDS ORDERED: LEVETIRACETAM 1000MG PREMIX 100 ML IV SCH (23:59)
[2022-02-19] MEDS ORDERED: CEFTRIAXONE 1,000 MG in DEXTROSE 5% WATER 50 ML IV SCH ×2
[2022-02-19 00:01] VITALS: BP 145/66
[2022-02-19] MEDS ORDERED: DEXT 5%/0.45% NACL KCL 20MEQ/L 1,000 ML IV SCH (01:00)
[2022-02-19] MEDS ORDERED: LEVETIRACETAM 1,000 MG in SODIUM CHLORIDE 0.9% 100 ML IV NR (01:00)
[2022-02-19 03:31] VITALS: BP 115/76
[2022-02-19] MEDS: INSULIN LISPRO 100 UNITS/ML SUBCUT SCH ×3 (06:12→18:20)
[2022-02-19] MEDS: BLOOD SUGAR DIAGNOSTIC STRIP TEST SCH ×3 (06:13→17:52)
[2022-02-19 07:14] LABS: BASOPHILS % 0.1 % (0.0-2.0); EOSINOPHILS % 0.2 % (0.0-5.0); HEMATOCRIT. 36.3 % (36.0-48.0); HEMOGLOBIN. 11.6 g/dL (12.0-16.0); LYMPHOCYTES % 10.5 % (20.0-50.0); MEAN CORPUSCULAR HEMOGLOBIN 28.1 pg (28.0-32.0); MEAN CORPUSCULAR VOLUME 87.8 fL (81.0-99.0); MONOCYTES % 2.6 % (2.0-8.0); NEUTROPHILS % 86.6 % (40.0-76.0); PLATELET 198 x1000/uL (130-400); RED BLOOD CELL COUNT 4.13 mill/uL (4.2-5.4); RED CELL DISTRIBUTION WIDTH 14.4 % (11.6-14.6)
[2022-02-19 08:00] VITALS: BP 127/79
[2022-02-19] MEDS: DEXAMETHASONE 10 MG/ML VIAL IV SCH (08:40)
[2022-02-19] MEDS: LEVETIRACETAM 1,000 MG in SODIUM CHLORIDE 0.9% 100 ML IV SCH ×2 (10:22→21:33)
[2022-02-19] MEDS: DEXTROSE 5% WATER 1,000 ML IV SCH (10:32)
[2022-02-19 12:00] VITALS: BP 138/98
[2022-02-19 16:00] VITALS: BP 137/88
[2022-02-19 20:00] VITALS: BP 132/72
[2022-02-19] MEDS: CEFTRIAXONE 1,000 MG in DEXTROSE 5% WATER 50 ML IV SCH (20:54)
[2022-02-20] VITALS: BP 142/72
[2022-02-20] MEDS: DEXTROSE 5% WATER 1,000 ML IV SCH ×2 (01:52→13:10)
[2022-02-20] MEDS: INSULIN LISPRO 100 UNITS/ML SUBCUT SCH ×2 (02:04→17:43)
[2022-02-20 04:00] VITALS: BP 130/64
[2022-02-20 08:00] VITALS: BP 143/74
[2022-02-20] MEDS: DEXAMETHASONE 10 MG/ML VIAL IV SCH (09:19)
[2022-02-20] MEDS: LEVETIRACETAM 1,000 MG in SODIUM CHLORIDE 0.9% 100 ML IV SCH ×4 (11:12→20:43)
[2022-02-20 12:00] VITALS: BP 103/72
[2022-02-20] MEDS: BLOOD SUGAR DIAGNOSTIC STRIP TEST SCH ×3 (12:00→17:45)
[2022-02-20 16:00] VITALS: BP 102/69
[2022-02-20] MEDS ORDERED: APIX2.5T PO (19:01)
[2022-02-20] MEDS ORDERED: FAMO20TA8 PO (19:03)
[2022-02-20 20:00] VITALS: BP 149/79
[2022-02-20] MEDS: CEFTRIAXONE 1,000 MG in DEXTROSE 5% WATER 50 ML IV SCH (20:43)
[2022-02-21] VITALS: BP 142/74
[2022-02-21] MEDS: INSULIN LISPRO 100 UNITS/ML SUBCUT SCH ×5 (00:47→23:22)
[2022-02-21 04:00] VITALS: BP 108/83
[2022-02-21] MEDS: BLOOD SUGAR DIAGNOSTIC STRIP TEST SCH ×5 (05:44→23:22)
[2022-02-21] MEDS: DEXTROSE 5% WATER 1,000 ML IV SCH ×2 (05:54→15:07)
[2022-02-21 08:00] VITALS: BP 124/88
[2022-02-21] MEDS: DEXAMETHASONE 10 MG/ML VIAL IV SCH ×2 (09:38→14:02)
[2022-02-21 14:00] VITALS: BP 155/79
[2022-02-21 16:00] VITALS: BP 160/81
[2022-02-21] MEDS ORDERED: GADOTERATE MEGLUMINE 5 MMOL/10 ML VIAL IV ONE (18:45)
[2022-02-21] MEDS: CEFTRIAXONE 1,000 MG in DEXTROSE 5% WATER 50 ML IV SCH (19:49)
[2022-02-21 20:00] VITALS: BP 134/74
[2022-02-21] MEDS: LEVETIRACETAM 1,000 MG in SODIUM CHLORIDE 0.9% 100 ML IV SCH (20:54)
[2022-02-22] VITALS: BP 149/82
[2022-02-22 04:00] VITALS: BP 155/73
[2022-02-22] MEDS: DEXTROSE 5% WATER 1,000 ML IV SCH ×2 (04:32→17:17)
[2022-02-22] MEDS: BLOOD SUGAR DIAGNOSTIC STRIP TEST SCH ×4 (05:18→23:36)
[2022-02-22] MEDS: INSULIN LISPRO 100 UNITS/ML SUBCUT SCH ×4 (05:19→23:36)
[2022-02-22 07:04] LABS: BASOPHILS % 0.1 % (0.0-2.0); HEMATOCRIT. 32.9 % (36.0-48.0); HEMOGLOBIN. 11.3 g/dL (12.0-16.0); LYMPHOCYTES % 17.4 % (20.0-50.0); MEAN CORPUSCULAR HEMOGLOBIN 28.6 pg (28.0-32.0); MEAN CORPUSCULAR VOLUME 83.6 fL (81.0-99.0); MONOCYTES % 7.7 % (2.0-8.0); NEUTROPHILS % 74.8 % (40.0-76.0); PLATELET 165 x1000/uL (130-400); RED BLOOD CELL COUNT 3.93 mill/uL (4.2-5.4); RED CELL DISTRIBUTION WIDTH 13.7 % (11.6-14.6)
[2022-02-22 07:05] LABS: CHLORIDE 110 mEq/L (98-107)
[2022-02-22 08:00] VITALS: BP 150/72
[2022-02-22] MEDS: DEXAMETHASONE 10 MG/ML VIAL IV SCH (08:39)
[2022-02-22] MEDS: LEVETIRACETAM 1,000 MG in SODIUM CHLORIDE 0.9% 100 ML IV SCH ×2 (08:40→20:54)
[2022-02-22] MEDS: KCL 20MEQ/100ML PREMIX 100 ML IV SCH ×2 (10:13→11:40)
[2022-02-22] MEDS: PANTOPRAZOLE SODIUM 40 MG/VIAL IV SCH (11:41)
[2022-02-22] MEDS: METOCLOPRAMIDE HCL 10MG/2ML VIAL IV SCH ×3 (11:45→23:35)
[2022-02-22 12:00] VITALS: BP 155/78
[2022-02-22 14:38] LABS: TOTAL IRON BINDING CAPACITY 199 ug/dL (250-450)
[2022-02-22 15:42] VITALS: BP 145/67
[2022-02-22 20:00] VITALS: BP 145/77
[2022-02-22] MEDS: CEFTRIAXONE 1,000 MG in DEXTROSE 5% WATER 50 ML IV SCH (20:06)
[2022-02-23] VITALS (7 sets, daily range): BP systolic 126–159; BP diastolic 69–92
[2022-02-23] MEDS: BLOOD SUGAR DIAGNOSTIC STRIP TEST SCH ×3 (05:08→16:47)
[2022-02-23] MEDS: INSULIN LISPRO 100 UNITS/ML SUBCUT SCH ×4 (05:08→23:29)
[2022-02-23] MEDS: METOCLOPRAMIDE HCL 10MG/2ML VIAL IV SCH ×3 (05:08→17:06)
[2022-02-23 06:30] LABS: BASOPHILS % 0.2 % (0.0-2.0); EOSINOPHILS % 0.1 % (0.0-5.0); HEMATOCRIT. 34.6 % (36.0-48.0); HEMOGLOBIN. 11.6 g/dL (12.0-16.0); LYMPHOCYTES % 21.6 % (20.0-50.0); MEAN CORPUSCULAR HEMOGLOBIN 27.9 pg (28.0-32.0); MEAN CORPUSCULAR VOLUME 83.4 fL (81.0-99.0); MEAN PLATELET VOLUME 10.1 fl (7.4-10.4); MONOCYTES % 8.7 % (2.0-8.0); NEUTROPHILS % 69.4 % (40.0-76.0); PLATELET 164 x1000/uL (130-400); RED BLOOD CELL COUNT 4.15 mill/uL (4.2-5.4); RED CELL DISTRIBUTION WIDTH 13.7 % (11.6-14.6)
[2022-02-23 06:38] LABS: CHLORIDE 109 mEq/L (98-107)
[2022-02-23] MEDS: PANTOPRAZOLE SODIUM 40 MG/VIAL IV SCH (08:06)
[2022-02-23] MEDS: DEXAMETHASONE 10 MG/ML VIAL IV SCH (08:06)
[2022-02-23] MEDS: DEXTROSE 5% WATER 1,000 ML IV SCH (08:07)
[2022-02-23] MEDS: LEVETIRACETAM 1,000 MG in SODIUM CHLORIDE 0.9% 100 ML IV SCH ×2 (08:07→21:37)
[2022-02-23] MEDS: KCL 20MEQ/100ML PREMIX 100 ML IV SCH ×2 (10:28→11:55)
[2022-02-23] MEDS ORDERED: KCL 10MEQ/50ML PREMIX 50 ML IV NR (13:30)
[2022-02-23] MEDS: CEFTRIAXONE 1,000 MG in DEXTROSE 5% WATER 50 ML IV SCH (20:54)
[2022-02-24] MEDS ORDERED: KEPP500 PO (01:36)
[2022-02-24] MEDS ORDERED: INSU100I28 SQ (01:38)
[2022-02-24 03:48] VITALS: BP 132/67
[2022-02-24 04:19] LABS: BASOPHILS % 0.2 % (0.0-2.0); EOSINOPHILS % 0.1 % (0.0-5.0); HEMATOCRIT. 35.3 % (36.0-48.0); HEMOGLOBIN. 11.9 g/dL (12.0-16.0); LYMPHOCYTES % 19.6 % (20.0-50.0); MEAN CORPUSCULAR HEMOGLOBIN 28.2 pg (28.0-32.0); MEAN CORPUSCULAR VOLUME 83.6 fL (81.0-99.0); MEAN PLATELET VOLUME 10.4 fl (7.4-10.4); MONOCYTES % 7.9 % (2.0-8.0); NEUTROPHILS % 72.2 % (40.0-76.0); PLATELET 159 x1000/uL (130-400); RED BLOOD CELL COUNT 4.23 mill/uL (4.2-5.4); RED CELL DISTRIBUTION WIDTH 13.7 % (11.6-14.6)
[2022-02-24 04:52] LABS: INR 1.1; PROTHROMBIN TIME 11.7 sec (9.6-11.0)
[2022-02-24] MEDS: METOCLOPRAMIDE HCL 10MG/2ML VIAL IV SCH ×4 (06:00→19:02)
[2022-02-24] MEDS: INSULIN LISPRO 100 UNITS/ML SUBCUT SCH ×4 (06:43→22:02)
[2022-02-24] MEDS: DEXTROSE 5% WATER 1,000 ML IV SCH ×2 (06:46→23:50)
[2022-02-24] MEDS: BLOOD SUGAR DIAGNOSTIC STRIP TEST SCH ×4 (06:46→18:00)
[2022-02-24 08:00] VITALS: BP 146/87
[2022-02-24] MEDS: PANTOPRAZOLE SODIUM 40 MG/VIAL IV SCH (09:50)
[2022-02-24] MEDS: LEVETIRACETAM 1,000 MG in SODIUM CHLORIDE 0.9% 100 ML IV SCH ×2 (09:50→22:41)
[2022-02-24] MEDS: DEXAMETHASONE 10 MG/ML VIAL IV SCH (09:50)
[2022-02-24 11:50] LABS: CHLORIDE 109 mEq/L (98-107)
[2022-02-24 12:00] VITALS: BP 150/74
[2022-02-24] MEDS ORDERED: KCL 20MEQ/100ML PREMIX 100 ML IV NR (12:25)
[2022-02-24 15:30] VITALS: BP 153/92
[2022-02-24] MEDS ORDERED: MIDAZOLAM HCL 2 MG/2 ML VIAL ONE (16:10)
[2022-02-24] MEDS ORDERED: PROPOFOL 200MG/20ML VIAL IV ONE (16:11)
[2022-02-24] MEDS ORDERED: LIDOCAINE HCL 1% 10 MG/ML 10ML VIAL ONE (16:11)
[2022-02-24] MEDS ORDERED: CEFAZOLIN SODIUM 1000MG/VIAL ONE (16:19)
[2022-02-24] MEDS ORDERED: FENTANYL CITRATE/PF 50MCG/ML 2ML VIAL ONE (16:30)
[2022-02-24 20:00] VITALS: BP 163/106
[2022-02-24] MEDS: CEFTRIAXONE 1,000 MG in DEXTROSE 5% WATER 50 ML IV SCH (21:58)
[2022-02-25] VITALS (7 sets, daily range): BP systolic 116–163; BP diastolic 68–105
[2022-02-25] MEDS: METOCLOPRAMIDE HCL 10MG/2ML VIAL IV SCH ×5 (00:02→23:27)
[2022-02-25] MEDS: BLOOD SUGAR DIAGNOSTIC STRIP TEST SCH ×5 (00:08→23:05)
[2022-02-25] MEDS ORDERED: ONDANSETRON HCL 4MG/2ML INJ IV PRN (00:45)
[2022-02-25] MEDS ORDERED: HYDRALAZINE 20MG/ML VIAL IV PRN (00:45)
[2022-02-25] MEDS: INSULIN LISPRO 100 UNITS/ML SUBCUT SCH ×5 (01:26→23:28)
[2022-02-25] MEDS: DEXTROSE 5% WATER 1,000 ML IV SCH (04:07)
[2022-02-25] MEDS: PANTOPRAZOLE SODIUM 40 MG/VIAL IV SCH (08:30)
[2022-02-25] MEDS: LEVETIRACETAM 1,000 MG in SODIUM CHLORIDE 0.9% 100 ML IV SCH ×2 (08:30→20:20)
[2022-02-25] MEDS: DEXAMETHASONE 10 MG/ML VIAL IV SCH (08:31)
[2022-02-25] MEDS ORDERED: MORPHINE SULFATE 2 MG/ML CPJ (NOT FOR IM USE) IV PRN (10:30)
[2022-02-25 11:01] LABS: BG BASE EXCESS 0.5 mmol/L (-2.0-2.0); BG CARBOXYHEMOGLOBIN 0.1 % (0.5-1.5); BG DEOXYHEMOGLOBIN 3.9 % (0.0-5.0); BG FRACTION INSPIRED OXYGEN 21; BG HCO3 ACT 23.2 mmol/L (22.0-26.0); BG METHEMOGLOBIN 0.5 % (0.0-1.5); BG OXYGEN SATURATION 96.1 % (92.0-98.5); BG OXYHEMOGLOBIN 95.5 % (94.0-97.0); BG PCO2 31.2 mmHg (35.0-45.0); BG PH 7.489 (7.350-7.450); BG PO2 80.4 mmHg (75.0-100.0); BG SAMPLE SITE RIGHT RADIAL; BG TOTAL HEMOGLOBIN 12.1 g/dL (12.0-18.0); BG VENT MODE ROOM AIR
[2022-02-25 11:22] LABS: BASOPHILS % 0.1 % (0.0-2.0); HEMATOCRIT. 33.5 % (36.0-48.0); HEMOGLOBIN. 11.4 g/dL (12.0-16.0); LYMPHOCYTES % 7.2 % (20.0-50.0); MEAN CORPUSCULAR HEMOGLOBIN 28.4 pg (28.0-32.0); MEAN CORPUSCULAR VOLUME 83.5 fL (81.0-99.0); MEAN PLATELET VOLUME 10.1 fl (7.4-10.4); MONOCYTES % 6.1 % (2.0-8.0); NEUTROPHILS % 86.6 % (40.0-76.0); PLATELET 158 x1000/uL (130-400); RED BLOOD CELL COUNT 4.01 mill/uL (4.2-5.4); RED CELL DISTRIBUTION WIDTH 13.9 % (11.6-14.6)
[2022-02-25 11:36] LABS: CHLORIDE 109 mEq/L (98-107)
[2022-02-25] MEDS ORDERED: POTASSIUM CHLORIDE INJ 40 MEQ in SODIUM CHLORIDE 0.9% 250 ML IV ONE (12:15)
[2022-02-25] MEDS ORDERED: NALOXONE HCL 0.4MG/ML VIAL IV PRN (23:30)
[2022-02-26] MEDS: DEXTROSE 5% WATER 1,000 ML IV SCH ×2 (02:08→17:05)
[2022-02-26 04:00] VITALS: BP 118/70
[2022-02-26] MEDS: METOCLOPRAMIDE HCL 10MG/2ML VIAL IV SCH ×4 (05:34→23:13)
[2022-02-26] MEDS: BLOOD SUGAR DIAGNOSTIC STRIP TEST SCH ×4 (05:41→23:10)
[2022-02-26] MEDS: INSULIN LISPRO 100 UNITS/ML SUBCUT SCH ×4 (05:59→23:14)
[2022-02-26 06:51] LABS: BASOPHILS % 0.2 % (0.0-2.0); EOSINOPHILS % 0.2 % (0.0-5.0); HEMATOCRIT. 34.2 % (36.0-48.0); HEMOGLOBIN. 11.3 g/dL (12.0-16.0); LYMPHOCYTES % 19.2 % (20.0-50.0); MEAN CORPUSCULAR HEMOGLOBIN 28.4 pg (28.0-32.0); MEAN CORPUSCULAR VOLUME 86.1 fL (81.0-99.0); MEAN PLATELET VOLUME 10.4 fl (7.4-10.4); NEUTROPHILS % 71.4 % (40.0-76.0); PLATELET 126 x1000/uL (130-400); RED BLOOD CELL COUNT 3.97 mill/uL (4.2-5.4); RED CELL DISTRIBUTION WIDTH 14.2 % (11.6-14.6)
[2022-02-26 07:04] LABS: CHLORIDE 109 mEq/L (98-107)
[2022-02-26 08:00] VITALS: BP 123/66
[2022-02-26] MEDS: FAMOTIDINE 20MG/2ML VIAL IV SCH ×2 (08:18→20:35)
[2022-02-26] MEDS: LEVETIRACETAM 1,000 MG in SODIUM CHLORIDE 0.9% 100 ML IV SCH (08:18)
[2022-02-26] MEDS ORDERED: KCL 10MEQ/50ML PREMIX 50 ML IV NR (09:00)
[2022-02-26 12:00] VITALS: BP 141/77
[2022-02-26 16:00] VITALS: BP 133/71
[2022-02-26 20:00] VITALS: BP 129/70
[2022-02-26] MEDS: LEVETIRACETAM 500MG/5ML CUP PO SCH (20:35)
[2022-02-27] VITALS: BP 132/69
[2022-02-27 04:00] VITALS: BP 102/72
[2022-02-27] MEDS: BLOOD SUGAR DIAGNOSTIC STRIP TEST SCH ×2 (05:02→11:48)
[2022-02-27] MEDS: INSULIN LISPRO 100 UNITS/ML SUBCUT SCH ×2 (05:08→12:09)
[2022-02-27] MEDS: DEXTROSE 5% WATER 1,000 ML IV SCH (05:08)
[2022-02-27] MEDS: METOCLOPRAMIDE HCL 10MG/2ML VIAL IV SCH ×2 (05:08→12:05)
[2022-02-27 08:00] VITALS: BP 120/76
[2022-02-27 10:25] LABS: HEMATOCRIT. 32.5 % (36.0-48.0); HEMOGLOBIN. 10.9 g/dL (12.0-16.0); MEAN CORPUSCULAR HEMOGLOBIN 28.6 pg (28.0-32.0); MEAN CORPUSCULAR VOLUME 85.1 fL (81.0-99.0); MEAN PLATELET VOLUME 10.2 fl (7.4-10.4); PLATELET 144 x1000/uL (130-400); RED BLOOD CELL COUNT 3.82 mill/uL (4.2-5.4)
[2022-02-27] MEDS: LEVETIRACETAM 500MG/5ML CUP PO SCH (10:29)
[2022-02-27] MEDS: FAMOTIDINE 20MG/2ML VIAL IV SCH (10:29)
[2022-02-27 11:13] LABS: PLATELET ESTIMATE NORMAL
[2022-02-27 11:31] VITALS: BP 120/76
[2022-02-27] MEDS ORDERED: INSULIN GLARGINE 100 UNITS/ML SUBCUT NR (12:00)
[2022-02-27 12:23] LABS: CHLORIDE 106 mEq/L (98-107)
== END 2022-02-27 12:55 | DRG 641 ==
LOC: ER 11:30 → EDBEDREQTM 15:11 → EDBEDREQSVC 15:11 → EDBEDREQ 15:11 → EDBEDREQTM 17:24 → 8WST 22:26
PROVIDERS: ADMIT Internal Medicine; ATTEND Internal Medicine
PROC: 02HV33Z Insertion of Infusion Device into Superior Vena Cava, Percutaneous Approach (ICD-10-PCS; 2022-02-21)
PROC: B5181ZA Fluoroscopy of Superior Vena Cava using Low Osmolar Contrast, Guidance (ICD-10-PCS; 2022-02-21)
PROC: B548ZZA Ultrasonography of Superior Vena Cava, Guidance (ICD-10-PCS; 2022-02-21)
PROC: 0DH63UZ Insertion of Feeding Device into Stomach, Percutaneous Approach (ICD-10-PCS; principal; 2022-02-24)
PROC: 0DB78ZX Excision of Stomach, Pylorus, Via Natural or Artificial Opening Endoscopic, Diagnostic (ICD-10-PCS; 2022-02-24)
DX: R62.7 Adult failure to thrive (principal); C71.9 Malignant neoplasm of brain, unspecified; N39.0 Urinary tract infection, site not specified; E87.1 Hypo-osmolality and hyponatremia; K29.80 Duodenitis without bleeding; Z20.822 Contact with and (suspected) exposure to COVID-19; E11.9 Type 2 diabetes mellitus without complications; E87.8 Other disorders of electrolyte and fluid balance, not elsewhere classified; I10 Essential (primary) hypertension; D32.0 Benign neoplasm of cerebral meninges; R13.10 Dysphagia, unspecified; Z88.8 Allergy status to other drugs, medicaments and biological substances; Z68.31 Body mass index [BMI] 31.0-31.9, adult
CPT/HCPCS: 36415; 36573; 36600; 70553; 71045; 76705; 80048; 80053; 80305; 80320; 81003; 82140; 82375; 82607; 82728; 82746; 82805; 82962; 83036; 83540; 83550; 83605; 83880; 84145; 84484; 85025; 85044; 87077; 87186; 87426; 88305; 88312; 88313; 92610; 93005; 97162; 99285; A9577; C1725; C1769; C1893; C9113; J0360; J0690; J0696; J1100; J1815; J1953; J2250; J2405; J2704; J2765; J3010; J3480; J3490; J7050; J7060; J7070; G0480

== ENCOUNTER 2022-03-05 20:10 | Inpatient (IN) | payer MEDICARE, MEDICAID ==
[~2022-03-05] VITALS: Ht 165.1 cm; Wt 88.0 kg
[~2022-03-05 20:10] MED LIST changes: -AMLO10TA80 PO; +APIX2.5T PO; -CEFTRIAXONE 1,000 MG in DEXTROSE 5% WATER 50 ML IV SCH; +FAMO20TA8 PO; +INSU100I28 SQ; +KEPP500 PO
[2022-03-05] MEDS ORDERED: PANTOPRAZOLE SODIUM 40 MG/VIAL IV STA (21:16)
[2022-03-05] MEDS ORDERED: ONDANSETRON HCL 4MG/2ML INJ IV STA (21:16)
[2022-03-05] MEDS ORDERED: SODIUM CHLORIDE 0.9% 1,000 ML IV ONE (21:30)
[2022-03-05 22:16] LABS: BASOPHILS % 0.3 % (0.0-2.0); HEMATOCRIT. 38.2 % (36.0-48.0); HEMOGLOBIN. 12.5 g/dL (12.0-16.0); LYMPHOCYTES % 8.8 % (20.0-50.0); MEAN CORPUSCULAR VOLUME 85.5 fL (81.0-99.0); MEAN PLATELET VOLUME 9.4 fl (7.4-10.4); MONOCYTES % 7.3 % (2.0-8.0); NEUTROPHILS % 83.6 % (40.0-76.0); PLATELET 227 x1000/uL (130-400); RED BLOOD CELL COUNT 4.48 mill/uL (4.2-5.4); RED CELL DISTRIBUTION WIDTH 14.2 % (11.6-14.6)
[2022-03-05 22:25] LABS: CHLORIDE 100 mEq/L (98-107)
[2022-03-05 22:27] LABS: PARTIAL THROMBOPLASTIN TIME 25.4 sec (23.4-31.0); PROTHROMBIN TIME 10.9 sec (9.6-11.0)
[2022-03-05] MEDS ORDERED: PIPERACILLIN/TAZ 3.375G PREMIX 50 ML IV NR (22:45)
[2022-03-05] MEDS ORDERED: VANCOMYCIN 1G PREMIX 200 ML IV NR (22:45)
[2022-03-06 05:00] VITALS: BP 148/77
[2022-03-06] MEDS ORDERED: ACETAMINOPHEN 325MG TABLET PO PRN (08:45)
[2022-03-06] MEDS ORDERED: ONDANSETRON HCL 4MG/2ML INJ IV PRN (08:45)
[2022-03-06] MEDS: SODIUM CHLORIDE 0.9% 1,000 ML IV SCH ×2 (12:10→22:20)
[2022-03-06] MEDS: PIPERACILLIN/TAZOBACTAM 3.375 G in DEXTROSE 5% WATER 50 ML IV SCH ×2 (12:27→21:18)
[2022-03-06 16:55] LABS: CHLORIDE 109 mEq/L (98-107)
[2022-03-06 20:00] VITALS: BP 120/75
[2022-03-07] VITALS: BP 118/72
[2022-03-07 04:00] VITALS: BP 120/70
[2022-03-07 07:30] LABS: BASOPHILS % 0.6 % (0.0-2.0); HEMATOCRIT. 32.3 % (36.0-48.0); HEMOGLOBIN. 10.9 g/dL (12.0-16.0); LYMPHOCYTES % 20.9 % (20.0-50.0); MEAN CORPUSCULAR HEMOGLOBIN 28.7 pg (28.0-32.0); MEAN PLATELET VOLUME 8.9 fl (7.4-10.4); MONOCYTES % 8.1 % (2.0-8.0); NEUTROPHILS % 69.4 % (40.0-76.0); PLATELET 192 x1000/uL (130-400); RED CELL DISTRIBUTION WIDTH 14.2 % (11.6-14.6)
[2022-03-07 07:51] LABS: CHLORIDE 106 mEq/L (98-107)
[2022-03-07 08:00] VITALS: BP 153/80
[2022-03-07 08:03] LABS: CREATINE KINASE 31 IU/L (26-192); PHOSPHORUS 3.3 mg/dL (2.5-4.9)
[2022-03-07] MEDS: PIPERACILLIN/TAZOBACTAM 3.375 G in DEXTROSE 5% WATER 50 ML IV SCH ×3 (09:32→21:20)
[2022-03-07] MEDS: SODIUM CHLORIDE 0.9% 1,000 ML IV SCH (11:19)
[2022-03-07 12:00] VITALS: BP 151/82
[2022-03-07 16:00] VITALS: BP 149/85
[2022-03-07 18:19] LABS: CLARITY URINE CLEAR (CLEAR); COLOR URINE YELLOW (YELLOW); KETONES URINE NEGATIVE (NEGATIVE); LEUKOCYTE ESTERASE URINE NEGATIVE (NEGATIVE); NITRITE URINE NEGATIVE (NEGATIVE); OCCULT BLOOD URINE 1+ (NEGATIVE); PH URINE 7.5 (4.5-8.0); PROTEIN URINE NEGATIVE (NEGATIVE); SPECIFIC GRAVITY URINE 1.011 (1.005-1.030)
[2022-03-07 20:00] VITALS: BP 139/80
[2022-03-08] VITALS: BP 149/78
[2022-03-08 04:00] VITALS: BP 135/72
[2022-03-08] MEDS: SODIUM CHLORIDE 0.9% 1,000 ML IV SCH ×2 (04:55→15:27)
[2022-03-08] MEDS: PIPERACILLIN/TAZOBACTAM 3.375 G in DEXTROSE 5% WATER 50 ML IV SCH ×3 (04:59→21:00)
[2022-03-08 07:40] VITALS: BP 154/79
[2022-03-08 12:00] VITALS: BP 125/74
[2022-03-08 16:00] VITALS: BP 145/74
[2022-03-08 20:00] VITALS: BP 158/79
[2022-03-09] VITALS: BP 147/84
[2022-03-09] MEDS: SODIUM CHLORIDE 0.9% 1,000 ML IV SCH ×2 (03:40→16:28)
[2022-03-09 04:00] VITALS: BP 150/68
[2022-03-09] MEDS: PIPERACILLIN/TAZOBACTAM 3.375 G in DEXTROSE 5% WATER 50 ML IV SCH ×3 (05:17→21:52)
[2022-03-09 08:00] VITALS: BP 148/75
[2022-03-09] MEDS: POLYETHYLENE GLYCOL 3350 (17GM) 1 DOSE PACK PO SCH (11:30)
[2022-03-09] MEDS ORDERED: DOCUSATE SODIUM 250MG CAPSULE PO PRN (11:30)
[2022-03-09 12:00] VITALS: BP 142/67
[2022-03-09 16:00] VITALS: BP 148/82
[2022-03-09 20:00] VITALS: BP 131/89
[2022-03-10] VITALS: BP 153/8
[2022-03-10 04:00] VITALS: BP 137/92
[2022-03-10] MEDS: PIPERACILLIN/TAZOBACTAM 3.375 G in DEXTROSE 5% WATER 50 ML IV SCH ×2 (06:00→13:12)
[2022-03-10 08:00] VITALS: BP 125/86
[2022-03-10] MEDS: POLYETHYLENE GLYCOL 3350 (17GM) 1 DOSE PACK PO SCH (09:04)
[2022-03-10 12:00] VITALS: BP 148/73
[2022-03-10 12:42] VITALS: BP 148/73
[2022-03-10 16:00] VITALS: BP 153/86
== END 2022-03-10 17:43 | DRG 871 ==
LOC: ER 20:10 → MICUSO 03-06 00:20 → 8WST 03-06 04:08
PROVIDERS: ADMIT Internal Medicine; ATTEND Internal Medicine
DX: A41.9 Sepsis, unspecified organism (principal); J18.9 Pneumonia, unspecified organism; N17.0 Acute kidney failure with tubular necrosis; E87.1 Hypo-osmolality and hyponatremia; E44.0 Moderate protein-calorie malnutrition; K92.2 Gastrointestinal hemorrhage, unspecified; F03.90 Unspecified dementia, unspecified severity, without behavioral disturbance, psychotic disturbance, mood disturbance, and anxiety; E11.9 Type 2 diabetes mellitus without complications; I10 Essential (primary) hypertension; E87.5 Hyperkalemia; F41.9 Anxiety disorder, unspecified; D32.0 Benign neoplasm of cerebral meninges; Z68.32 Body mass index [BMI] 32.0-32.9, adult; Z88.8 Allergy status to other drugs, medicaments and biological substances; Z93.1 Gastrostomy status; Z79.01 Long term (current) use of anticoagulants; Z79.4 Long term (current) use of insulin; Z79.84 Long term (current) use of oral hypoglycemic drugs; Z79.899 Other long term (current) drug therapy; Z85.841 Personal history of malignant neoplasm of brain; Z86.718 Personal history of other venous thrombosis and embolism; Z82.49 Family history of ischemic heart disease and other diseases of the circulatory system
CPT/HCPCS: 36415; 71045; 74176; 80048; 80053; 81003; 82140; 82550; 83605; 83735; 84100; 85025; 86850; 86900; 99291; C9113; J2405; J2543; J3370; J7030; J7060; A4315